=== PATIENT | female | born 2000 | race Caucasian/White ===

== ENCOUNTER 2024-02-25 07:48 | Inpatient (IN) | payer SELFPAY ==
[2024-02-25] VITALS (7 sets, daily range): BP systolic 108–122; BP diastolic 71–76; PULSE 75–90; TEMP 97.5–98.9
[~2024-02-25] VITALS: Ht 154.9 cm; Wt 64.8 kg
[2024-02-25] MEDS ORDERED: Morphine 4 MG/ML VIAL IV PRN ×2 (08:30→11:45)
[2024-02-25] MEDS ORDERED: Ondansetron 4 MG/2 ML VIAL IV ONE (08:30)
[2024-02-25] MEDS ORDERED: NS 1,000 ML IV ONE (08:30)
[2024-02-25 08:48] LABS: BASO % 0.3 % (0.0-2.0); EOS # 0.1 K/mm3 (0.0-0.7); EOS % 0.7 % (0.0-4.0); GRAN # 11.1 K/mm3 (1.4-6.5); GRAN % 80.2 % (42.2-75.2); HEMATOCRIT 37.9 % (37.0-47.0); LYMPH # 1.9 K/mm3 (1.2-3.4); LYMPH % 13.7 % (20.0-51.0); MEAN CELL VOLUME 86 fl (80.0-100.0); MEAN PLATELET VOLUME 11.8 fl (7.4-10.4); MONO # 0.7 K/mm3 (0.1-0.6); MONO % 4.8 % (1.7-9.3); PLATELET COUNT 263 K/mm3 (130-400); RED BLOOD COUNT 4.43 M/mm3 (4.10-5.30); REDCELL DISTRIBUTION WIDTH-CV 12.1 % (11.5-14.5)
[2024-02-25 09:29] LABS: HEMOGLOBIN 12.8 g/dl (12.5-16.0); MEAN CORPUSCULAR HEMOGLOBIN 30 pg (27-31); MEAN CORPUSCULAR HGB CONC 35 g/dl (33.0-37.0)
[2024-02-25 09:41] LABS: ALBUMIN 4.5 g/dL (3.5-5.0); BILIRUBIN,TOTAL 0.5 mg/dL (0.2-1.2); CALCIUM 9.7 mg/dL (8.4-10.2); CREATININE, serum 0.75 mg/dL (0.57-1.11); POTASSIUM 4.2 mEq/L (3.5-4.5); TOTAL PROTEIN 8.2 g/dl (6.2-8.1)
[2024-02-25] MEDS ORDERED: Iohexol 300 - 100 ML VIAL IV ONE (10:09)
[2024-02-25] MEDS ORDERED: NS 100 ML IV SCH (10:10)
[2024-02-25 10:59] LABS: PH 5.5 (5.0-8.5); URINE APPEARANCE CLEAR (CLEAR/HAZY); URINE BLOOD NEGATIVE (NEGATIVE); URINE COLOR YELLOW (YELLOW); URINE GLUCOSE NEGATIVE (NEGATIVE); URINE KETONE 1+ (NEGATIVE); URINE NITRATE NEGATIVE (NEGATIVE); URINE PROTEIN(semi-quant) 1+ (NEGATIVE); URINE UROBILINOGEN 0.2 E.U/dL (0.2-1.0)
[2024-02-25 11:30] LABS: COLLECTION METHOD CLEAN CATCH
[2024-02-25] MEDS ORDERED: Docusate Sodium 100 MG CAP PO PRN (11:45)
[2024-02-25] MEDS ORDERED: Ondansetron 4 MG/2 ML VIAL IV PRN (11:45)
[2024-02-25] MEDS ORDERED: LR 1,000 ML IV SCH (11:45)
[2024-02-25] MEDS ORDERED: Acetaminophen 325 MG TAB PO PRN (11:45)
[2024-02-25] MEDS ORDERED: Polyethylene Glycol 3350 17 GM PDS PO PRN (11:45)
[2024-02-25 12:38] LABS: ALCOHOL(ethanol),MEDICAL < 10 mg/dL (0-10); SALICYLATE < 5.0 mg/dL (15.0-30.0)
--- NOTE | 2024-02-25 16:02 | NUR ---
PATIENT CAME FROM ER. RATES PAIN 7/10 TO RIGHT UPPER QUADRANT.PATIENT FLUIDS INFUSING PER EMAR. PATIENT INTAKE COMPLETED. CALL LIGHT WITHIN REACH. BED AT LOWEST POSITION. NO FURTHER NEEDS AT THIS TIME.
[2024-02-25] MEDS ORDERED: D5 1/2 NS & 20 mEq KCl 1,000 ML IV SCH (21:45)
[2024-02-25] MEDS ORDERED: Insulin Human Regular/NS 100 ML IV SCH (21:45)
[2024-02-25] MEDS ORDERED: Dextrose 50% Water 25 GM/50 ML SYRINGE IV ONE (22:00)
[2024-02-25 22:17] LABS: ALBUMIN 3.2 g/dL (3.5-5.0); BILIRUBIN,TOTAL 0.7 mg/dL (0.2-1.2); CALCIUM 8.7 mg/dL (8.4-10.2); CREATININE, serum 0.67 mg/dL (0.57-1.11); MAGNESIUM 1.5 mg/dL (1.6-2.6); PHOSPHOROUS 2.6 mg/dL (2.3-4.7); POTASSIUM 3.8 mEq/L (3.5-4.5); TOTAL PROTEIN 7.1 g/dl (6.2-8.1)
--- NOTE | 2024-02-25 22:28 | NUR ---
RECEIVED CRITICAL LAB VALUE FROM LAB-PATIENT'S CO2 RESULT IS 10. CALLED TO HOSPITALIST KYM PETE APRN AT THIS TIME
[2024-02-25] MEDS ORDERED: D5LR 1,000 ML IV SCH (22:30)
[2024-02-25] MEDS ORDERED: Magnesium Sulfate 4% 50 ML IV ONE (22:30)
[2024-02-25] MEDS ORDERED: *Potassium Replacement Protocol MC SCH (22:30)
[2024-02-25] MEDS ORDERED: Potassium Chloride 100 ML IV SCH (22:30)
--- NOTE | 2024-02-25 22:32 | NUR ---
PATIENT RETURNING TO BED FROM RESTROOM UPON ENTERING ROOM. STATES MORPHINE DID HELP HER PAIN COME DOWN SOME AND NOW REPORTS PAIN 5/10 IN HER ABDOMEN. CALL LIGHT WITHIN REACH. BED IS LOCKED AND IN LOW POSITION.
--- NOTE | 2024-02-25 22:40 | NUR ---
REPORT CALLED TO HAND WORKERTOYA AYALA
--- NOTE | 2024-02-25 22:50 | NUR ---
PATIENT OFF FLOOR TO ICU
[2024-02-25 23:37] LABS: ANION GAP 19 mmol/L (7-16); CALCIUM 9.2 mg/dL (8.4-10.2); CHLORIDE 102 mEq/L (98-107); CREATININE, serum 0.73 mg/dL (0.57-1.11); GLUCOSE 113 mg/dL (70-99); POTASSIUM 3.6 mEq/L (3.5-4.5); SODIUM 134 mEq/L (136-145)
[2024-02-25 23:38] LABS: BLOOD UREA NITROGEN < 5 mg/dL (7-19)
[2024-02-26] VITALS (16 sets, daily range): BP systolic 103–119; BP diastolic 63–72; PULSE 92–110; TEMP 97.8–98.7; O2SAT 97–99
[2024-02-26 02:01] LABS: COLLECTION METHOD CLEAN CATCH
[2024-02-26 02:06] LABS: PH 7.5 (5.0-8.5); URINE APPEARANCE CLEAR (CLEAR/HAZY); URINE BLOOD NEGATIVE (NEGATIVE); URINE COLOR YELLOW (YELLOW); URINE GLUCOSE NEGATIVE (NEGATIVE); URINE KETONE NEGATIVE (NEGATIVE); URINE NITRATE NEGATIVE (NEGATIVE); URINE PROTEIN(semi-quant) NEGATIVE (NEGATIVE); URINE UROBILINOGEN 0.2 E.U/dL (0.2-1.0)
[2024-02-26 04:48] LABS: BASO % 0.2 % (0.0-2.0); EOS # 0.1 K/mm3 (0.0-0.7); GRAN # 7.5 K/mm3 (1.4-6.5); GRAN % 78.1 % (42.2-75.2); HEMATOCRIT 32.2 % (37.0-47.0); HEMOGLOBIN 11.6 g/dl (12.5-16.0); LYMPH # 1.3 K/mm3 (1.2-3.4); LYMPH % 13.7 % (20.0-51.0); MEAN CELL VOLUME 84 fl (80.0-100.0); MEAN CORPUSCULAR HEMOGLOBIN 30 pg (27-31); MEAN CORPUSCULAR HGB CONC 36 g/dl (33.0-37.0); MEAN PLATELET VOLUME 11.3 fl (7.4-10.4); MONO # 0.7 K/mm3 (0.1-0.6); MONO % 6.8 % (1.7-9.3); PLATELET COUNT 209 K/mm3 (130-400); RED BLOOD COUNT 3.83 M/mm3 (4.10-5.30); REDCELL DISTRIBUTION WIDTH-CV 12.2 % (11.5-14.5)
[2024-02-26 05:17] LABS: ANION GAP 12 mmol/L (7-16); CALCIUM 8.7 mg/dL (8.4-10.2); CHLORIDE 107 mEq/L (98-107); CREATININE, serum 0.69 mg/dL (0.57-1.11); GLUCOSE 138 mg/dL (70-99); POTASSIUM 3.8 mEq/L (3.5-4.5); SODIUM 137 mEq/L (136-145)
[2024-02-26 05:25] LABS: BLOOD UREA NITROGEN < 5 mg/dL (7-19)
--- NOTE | 2024-02-26 07:00 | NUR ---
REPORT RECEIVED FROM TOYA BOWER. PT ALERT AND ORIENTED THIS AM; COMPLAINTS OF SOME ABDOMINAL PAIN. INSULIN GTT INFUSING. CALL LIGHT IN REACH AND BED ALARM ON. PT ASSISTED TO BATHROOM AT THIS TIME.
[2024-02-26 08:25] LABS: ANION GAP 10 mmol/L (7-16); CALCIUM 8.5 mg/dL (8.4-10.2); CHLORIDE 107 mEq/L (98-107); CREATININE, serum 0.65 mg/dL (0.57-1.11); GLUCOSE 94 mg/dL (70-99); POTASSIUM 4.1 mEq/L (3.5-4.5); SODIUM 137 mEq/L (136-145)
[2024-02-26 08:26] LABS: BLOOD UREA NITROGEN < 5 mg/dL (7-19)
[2024-02-26] MEDS ORDERED: Influenza Virus Vaccine, Trivalent '24-25 0.5 ML SYRINGE IM SCH (09:00)
--- NOTE | 2024-02-26 09:00 | NUR ---
Upon reviewing orders this RN noticed that insulin gtt should be running at 6.5 units/hr not 6 units/hr. Insulin adjusted to correct dose at this time.
--- NOTE | 2024-02-26 09:14 | NUR ---
SW met with patient to complete initial assessment for discharge planning. Patient alert and oriented x 4, states that she lives with her aunt Bree Graham ([phone]) and aunts family in [place]. Patient states she does not currently have a PCP but is in the process of establishing with [place] [facility]. Pateint uses [facility] without difficulty at this time. Patient is listed as self pay, however, patient states that she should have for Life insurance due to being retired . Patient also states that she has just started employment at [employer] and will have BCBS insurance through them. Patient plans to return home at discharge. SW called [facility] HR benefits and spoke with Opal to inquire about patient's benefits. She shared that patient's hire date was 02/20/24 and she has not submitted enrollment information to date. TINO then called financial counselor Lawrence to inquire about patient's insurance. Lawrence to check patient's status and inform SW if she has coverage. Lawrence will complete FAA if patient does not have insurance coverage. Discharge plan: Home
--- NOTE | 2024-02-26 11:28 | NUR ---
TINO attended clinical rounds with team. Patient is being referred for transfer to [facility] for higher level of care. TINO spoke with Financial counselor Lawrence who stated she has talked with her supervisors regarding insurance. Awaiting update. TINO left message with Opal at [facility] to return call regarding application documents for patient to complete jose for insurance coverage. TINO met with patient and her cousin to discuss insurance barriers to transfer. Cousin states she is willing to last picker insurance application and assist patient to complete jose. TINO informed patient that we are waiting to determine if she has coverage.
[2024-02-26] MEDS ORDERED: HYDROmorphone 0.5 MG/0.5 ML SYRINGE IV PRN (11:30)
[2024-02-26 12:40] LABS: ANION GAP 10 mmol/L (7-16); CALCIUM 8.9 mg/dL (8.4-10.2); CHLORIDE 108 mEq/L (98-107); CREATININE, serum 0.67 mg/dL (0.57-1.11); GLUCOSE 109 mg/dL (70-99); POTASSIUM 3.8 mEq/L (3.5-4.5); SODIUM 139 mEq/L (136-145)
[2024-02-26 12:55] LABS: BLOOD UREA NITROGEN < 5 mg/dL (7-19)
--- NOTE | 2024-02-26 14:47 | NUR ---
TINO spoke with Ct, patient's hiring software qa manager at [facility]. Ct emailed a letter to TINO explaining that patient is eligible for insurance benefits as of hiring date of 02/19. Ct is also contacting patient's cousin to assist in getting patient officially enrolled for insurance benefits. TINO recieved call back from Joshua with [employer] stating that patient should still be covered by as of her discharge date. Joshua instructed patient to contact [employer] to instruct them to reactive her benefits. TINO met with patient's cousin to communicate this information. patient sleeping during visit. Cousin stated she will assist patient with BCBS paperwork when it is received and will assist patient to call [employer] as soon as patient wakes up. TINO provided copy of [facility] letter to Software Development Project Manager Chasity to send with referral packet to [facility]. Also informed HS Chasity that patient is eligible for to add to referral.
[2024-02-26] MEDS ORDERED: Morphine 4 MG/ML VIAL IV PRN (15:45)
[2024-02-26] MEDS ORDERED: D10W 1,000 ML IV SCH (16:45)
--- NOTE | 2024-02-26 16:46 | NUR ---
PT ARRIVES TO ICU 5 FROM [facility] VIA EMS AT THIS TIME. PT NORMALLY RESIDES AT [facility]. PT WAS SENT TO ER TODAY FOR INCREASED OXYGEN DEMANDS AND WAS FOUND TO BE POSITIVE FOR RHINOVIRUS. PT CURRENTLY IN DROPLET PRECAUTIONS. PT ALERT AND ORIENTED UPON ARRIVAL BUT DOES SEEMS FORGETFULL. PT ARRIVED WITH CLOTHES, WATCH, AND SHOES. PIV TO LEFT HAND AND RIGHT FA; BOTH SALINE LOCKED. PT PLACED ON AIRVO BY RT UPON ARRIVAL. PT'S VITALS WNL. TAWNYA DAILEY MADE AWARE OF PT'S ARRIVAL. THIS RN SPOKE WITH DR. Jeanette WOLF. DR. WOLF RECOMMENDED CONTINUING AIRVO AND GETTING AN ABG IN APPROX. 1 HR. CALL LIGHT IN REACH AND BED ALARM ON. ATTEMPTED TO CONTACT PT'S DPOA BUT CALL WOULD NOT GO THROUGH.
--- NOTE | 2024-02-26 18:00 | NUR ---
This RN notified HAILEY Mota that pt's last few blood sugars have been 90-110. Svetlana states she is okay with this. No new orders received.
--- NOTE | 2024-02-26 19:15 | NUR ---
Received report from TOYA Rodriguez. Pt is sitting in the bed with family at beside. Pt is alert and vitals are stable at this time. Pt on insulin and D10W drips at this time. Bed is in low position and call light is within reach. Will continue with pt care.
[2024-02-26 19:16] LABS: ANION GAP 10 mmol/L (7-16); CALCIUM 9.3 mg/dL (8.4-10.2); CHLORIDE 104 mEq/L (98-107); CREATININE, serum 0.64 mg/dL (0.57-1.11); GLUCOSE 85 mg/dL (70-99); POTASSIUM 3.5 mEq/L (3.5-4.5); SODIUM 136 mEq/L (136-145)
[2024-02-26 19:19] LABS: BLOOD UREA NITROGEN < 5 mg/dL (7-19)
[2024-02-27] VITALS (250 sets, daily range): BP systolic 109–124; BP diastolic 66–72; PULSE 96–111; TEMP 98.4–99.1; O2SAT 89–100
[2024-02-27 05:45] LABS: BASO % 0.3 % (0.0-2.0); EOS # 0.1 K/mm3 (0.0-0.7); GRAN # 8.5 K/mm3 (1.4-6.5); GRAN % 73.7 % (42.2-75.2); HEMOGLOBIN 11.6 g/dl (12.5-16.0); LYMPH % 17.2 % (20.0-51.0); MEAN CELL VOLUME 86 fl (80.0-100.0); MEAN CORPUSCULAR HEMOGLOBIN 30 pg (27-31); MEAN CORPUSCULAR HGB CONC 36 g/dl (33.0-37.0); MEAN PLATELET VOLUME 11.6 fl (7.4-10.4); MONO # 0.9 K/mm3 (0.1-0.6); MONO % 7.5 % (1.7-9.3); PLATELET COUNT 210 K/mm3 (130-400); RED BLOOD COUNT 3.81 M/mm3 (4.10-5.30); REDCELL DISTRIBUTION WIDTH-CV 12.6 % (11.5-14.5)
[2024-02-27 05:50] LABS: HEMATOCRIT 32.7 % (37.0-47.0)
[2024-02-27 06:10] LABS: ALANINE AMINOTRANSFERASE 12 U/L (0-55); ALKALINE PHOSPHATASE 48 U/L (40-150); ANION GAP 12 mmol/L (7-16); AST,SGOT 15 U/L (5-34); BILIRUBIN,TOTAL 0.8 mg/dL (0.2-1.2); CHLORIDE 104 mEq/L (98-107); CREATININE, serum 0.68 mg/dL (0.57-1.11); GLUCOSE 99 mg/dL (70-99); MAGNESIUM 1.8 mg/dL (1.6-2.6); POTASSIUM 3.5 mEq/L (3.5-4.5); SODIUM 136 mEq/L (136-145); TOTAL PROTEIN 6.8 g/dl (6.2-8.1)
--- NOTE | 2024-02-27 06:18 | NUR ---
Pt had an uneventful night. Pt's vitals were stable throughout the night. Pt on insulin drip and D10W at this time. Pt has constant pain in the ABD and PRN morphine is given per orders. Pt gets up independently and at times with SBA to the toilet. Pt is currently resting in bed with call light within reach. Bed in low position. Will give report to day shift nurse.
[2024-02-27 06:23] LABS: BLOOD UREA NITROGEN < 5 mg/dL (7-19)
[2024-02-27] MEDS ORDERED: Potassium Bicarbonate/Citrate 20 MEQ Effervescent TAB PO SCH (06:30)
[2024-02-27] MEDS ORDERED: Dextrose 50% Water 25 GM/50 ML SYRINGE IV PRN (07:15)
[2024-02-27] MEDS ORDERED: Dextrose (Glucose) 15 GM (4 x 3.75 GM) Chewable TABLET PACK PO PRN (07:15)
[2024-02-27] MEDS ORDERED: Glucagon 1 MG VIAL IM PRN (07:15)
--- NOTE | 2024-02-27 08:29 | NUR ---
PT RESTING IN BED UPON ENTERING. INSULIN DRIP RUNNING AT 6.5 UNITS/HR, FLUIDS RUNNING PER ORDER. PT REPORTS ABDOMINAL PAIN AT THIS TIME. PT DENIES OTHER NEEDS AT THIS TIME
[2024-02-27] MEDS ORDERED: Influenza Virus Vaccine, Trivalent '24-25 0.5 ML SYRINGE IM SCH (09:00)
--- NOTE | 2024-02-27 10:40 | NUR ---
PT RESTING IN BED UPON ENTERING. PT REPORTS INCREASED ABDOMINAL PAIN AND GIVEN PRN MORPHINE. PT TEARFUL STATING "I DONT WANT TO BE HERE", REGARDING HOSPITAL STAY. PT REASSURED AND EDUCATED ON PLAN OF CARE AND THAT CONCERNS ABOUT STAYING SHOULD BE VOICED TO HOSPITALIST. PT DENIES OTHER NEEDS. BED IN LOWEST POSITION, CALL LIGHT IN REACH.
[2024-02-27] MEDS ORDERED: oxyCODONE 5 MG TAB PO PRN (10:45)
[2024-02-27] MEDS ORDERED: Fenofibrate 54 MG TABLET PO SCH (10:45)
--- NOTE | 2024-02-27 12:22 | NUR ---
TINO met with patient to follow up on insurance needs. Patient stated that she called [employer] and was informed that she does not qualify for . She states that she has a disability application pending at this time but will not have VA insurance until her disability is approved. Patient still working on getting her BCBS paperwork submitted to her employer [employer]. TINO contacted Lawrence, financial counselor, to request FAA be completed with patient.
[2024-02-27] MEDS ORDERED: LORazepam 2 MG/ML 1 ML VIAL IV ONE (19:00)
--- NOTE | 2024-02-27 19:30 | NUR ---
Received report from TOYA Mantilla. Pt is resting in bed with family at bedside. Vitals are stable at this time. Pt on insulin drip and D10W at this time. Bed is in low position and call light is within reach. Will continue with pt care.
[2024-02-27] MEDS ORDERED: Atorvastatin 20 MG TAB PO SCH (21:00)
[2024-02-28] VITALS (302 sets, daily range): BP systolic 114–119; BP diastolic 63–76; PULSE 82–98; TEMP 97.7–99; O2SAT 76–100
[2024-02-28 05:05] LABS: BASO % 0.3 % (0.0-2.0); EOS # 0.2 K/mm3 (0.0-0.7); EOS % 1.7 % (0.0-4.0); GRAN # 6.4 K/mm3 (1.4-6.5); GRAN % 70.6 % (42.2-75.2); HEMOGLOBIN 11.8 g/dl (12.5-16.0); LYMPH # 1.7 K/mm3 (1.2-3.4); MEAN CELL VOLUME 86 fl (80.0-100.0); MEAN CORPUSCULAR HEMOGLOBIN 31 pg (27-31); MEAN CORPUSCULAR HGB CONC 36 g/dl (33.0-37.0); MEAN PLATELET VOLUME 10.5 fl (7.4-10.4); MONO # 0.7 K/mm3 (0.1-0.6); MONO % 8.2 % (1.7-9.3); PLATELET COUNT 247 K/mm3 (130-400); RED BLOOD COUNT 3.83 M/mm3 (4.10-5.30); REDCELL DISTRIBUTION WIDTH-CV 12.4 % (11.5-14.5)
[2024-02-28 05:06] LABS: HEMATOCRIT 33.1 % (37.0-47.0)
[2024-02-28 05:25] LABS: CHOLESTEROL RISK RATIO 9.4; MAGNESIUM 1.9 mg/dL (1.6-2.6)
[2024-02-28 05:26] LABS: ALANINE AMINOTRANSFERASE 46 U/L (0-55); ALKALINE PHOSPHATASE 69 U/L (40-150); ANION GAP 11 mmol/L (7-16); AST,SGOT 38 U/L (5-34); BILIRUBIN,TOTAL 1.5 mg/dL (0.2-1.2); BLOOD UREA NITROGEN < 5 mg/dL (7-19); CALCIUM 9.3 mg/dL (8.4-10.2); CHLORIDE 104 mEq/L (98-107); CREATININE, serum 0.72 mg/dL (0.57-1.11); GLUCOSE 99 mg/dL (70-99); POTASSIUM 3.4 mEq/L (3.5-4.5); SODIUM 137 mEq/L (136-145); TOTAL PROTEIN 6.9 g/dl (6.2-8.1)
[2024-02-28] MEDS ORDERED: Potassium Bicarbonate/Citrate 20 MEQ Effervescent TAB PO SCH (05:45)
--- NOTE | 2024-02-28 06:30 | NUR ---
Pt had an uneventful night. Vitals have been stable throughout the night. Pt had pain throughout the night, but states it's comfortable enough to where she doesn't need pain meds. Has not taken pain meds since day shift. Pt still on insulin and D10W drip. Pt currently resting in bed with bed in low position and call light within reach. Will give report to day shift nurse.
--- NOTE | 2024-02-28 08:15 | NUR ---
Patient sleeping but awakens easily to verbal stimulation. A&0 X 4.. Reports some right sided abdominal pain, but states it is "much better" than initial pain. VS and BG within normal limits. Call light left within reach.
[2024-02-28] MEDS ORDERED: Omega-3 Fatty Acid Esters (OTC) 1,000 MG CAP PO SCH (09:00)
--- NOTE | 2024-02-28 16:00 | NUR ---
Patient transfered from unit via EMS; alert and oriented and in no distress upon transfer. All belongings sent with family.
== END 2024-02-28 16:00 | disposition short-term general hospital (02) | DRG 440 ==
LOC: COL.ER 07:48 → MEDICAL 11:22 → ICU 22:48
PROVIDERS: Internal Medicine; Nurse Practitioner Family; Personal Emergency Response Attendant; ADMIT Hospitalist
DX: K85.90 Acute pancreatitis without necrosis or infection, unspecified (principal); E78.1 Pure hyperglyceridemia; D72.829 Elevated white blood cell count, unspecified
CPT/HCPCS: J1171; J1650; J1815; J2270; J2405; J2543; J3475; J3480; J7030; J7120; J7121; Q9967